=== PATIENT | female | born 1975 | race Caucasian/White ===

== ENCOUNTER → 2025-01-23 14:40 | Outpatient (REF) | payer BC, SELFPAY | LOC: WDC 14:40 | PROVIDERS: ATTENDING PHYSICIAN Obstetrics & Gynecology; FAMILY PHYSICIAN Student in an Organized Health Care Education/Training Program | DX: Z12.31 Encounter for screening mammogram for malignant neoplasm of breast (principal) | CPT/HCPCS: 77063; 77067 ==

== ENCOUNTER → 2025-02-04 08:48 | Outpatient (REF) | payer BC, SELFPAY | LOC: WDC 08:48 | PROVIDERS: ATTENDING PHYSICIAN Obstetrics & Gynecology; FAMILY PHYSICIAN Student in an Organized Health Care Education/Training Program | DX: R92.8 Other abnormal and inconclusive findings on diagnostic imaging of breast (principal) | CPT/HCPCS: 76642 ==